=== PATIENT | male | born 1995 | race Two or more races ===

== ENCOUNTER 2018-03-02 12:15 | Emergency (ER) | payer OTHER ==
[~2018-03-02] VITALS: Ht 170.2 cm; Wt 51.3 kg
[2018-03-02 12:22] VITALS: BP 124/74
[2018-03-02] MEDS ORDERED: TETANUS-DIPTH-ACEL PERTUSSIS 0.5ML SYRG IM ONE (14:30)
== END 2018-03-02 15:20 | disposition home or self-care (01) ==
LOC: ER 12:15
DX: S01.432A Puncture wound without foreign body of left cheek and temporomandibular area, initial encounter (principal); W22.8XXA Striking against or struck by other objects, initial encounter; Y93.89 Activity, other specified; Y99.8 Other external cause status; Y92.89 Other specified places as the place of occurrence of the external cause
CPT/HCPCS: 90471; 90715

== ENCOUNTER 2018-03-24 08:22 | Emergency (ER) | payer OTHER ==
[~2018-03-24] VITALS: Ht 170.2 cm; Wt 52.2 kg
[2018-03-24 08:31] VITALS: BP 125/84
[2018-03-24] MEDS ORDERED: HYDROcodone-ACET 5/325MG TAB PO ONE (09:30)
[2018-03-24] MEDS ORDERED: LIDOCAINE 1% (LOCAL ANESTH.) PF 5ml SDV ID ONE (09:30)
[2018-03-24] MEDS ORDERED: cefTRIAXone SOD 1,000 MG VL IM ONE (11:00)
== END 2018-03-24 12:03 | disposition home or self-care (01) ==
LOC: ER 08:22
DX: S62.651B Nondisplaced fracture of middle phalanx of left index finger, initial encounter for open fracture (principal); S60.451A Superficial foreign body of left index finger, initial encounter; W45.8XXA Other foreign body or object entering through skin, initial encounter; W22.8XXA Striking against or struck by other objects, initial encounter; Y93.89 Activity, other specified; Y99.8 Other external cause status; Y92.89 Other specified places as the place of occurrence of the external cause
CPT/HCPCS: 10120; 73130; 96372; 99284; J0696